=== PATIENT | male | born 1995 | race Caucasian/White ===

== ENCOUNTER 2016-09-10 16:25 | Emergency (ER) | payer OTHER ==
[2016-09-10 16:25] VITALS: TEMP 36.9; O2SAT 96
[2016-09-10 17:36] LABS: BLOOD UREA NITROGEN 10 mg/dl (7-18); BUN/CREATININE RATIO 10.6 (10-20); CALCIUM 8.5 mg/dl (8.5-10.1); CARBON DIOXIDE 24 mmol/L (21-32); CHLORIDE 107 mmol/L (98-107); CREATININE 0.96 mg/dl (0.60-1.40); GLUCOSE 94 mg/dl (70-99); POTASSIUM 3.7 mmol/L (3.5-5.1); SODIUM 142 mmol/L (136-145)
--- NOTE | 2016-09-10 19:22 | EMERGENCY ROOM VISIT NOTE ---
History Report prepared by Scribe: Paradise Lang Under the Supervision of: Dr. Arnulfo Gavin D.O. First contact with patient: 16:24 Chief Complaint: ALCOHOL OVERDOSE Stated Complaint: ETOH History of Present Illness The patient is a 21 year old male who presents to the Emergency Room with complaints of alcohol overdose occurring today. The patient was found hanging on a fence. HPI is limited secondary to alcohol overdose. Source of History: patient History Limited By: other (alcohol overdose) Onset: today Position: other (global) Quality: other (alcohol overdose) Review of Systems ROS is limited secondary to alcohol overdose. Past Medical & Surgical Medical Problems: (1) No Known Active Medical Problems Family History Patient reports no known family medical history. Social History Alcohol Use: occasionally Occupation Status: student Current/Historical Medications Unable to Obtain Active Prescriptions or Reported Meds Allergies Coded Allergies: Unobtainable (Unverified Allergy, Unknown, unknown, 09/10/16) Physical Exam Vital Signs Date Time Temp Pulse Resp B/P Pulse Ox O2 Delivery O2 Flow Rate FiO2 09/10/16 19:48 114 18 135/98 98 Room Air 09/10/16 18:55 70 19 117/64 98 Room Air 09/10/16 17:25 65 19 94 09/10/16 16:59 120/66 09/10/16 16:55 98 18 98 09/10/16 16:42 104 09/10/16 16:40 143/74 09/10/16 16:25 96 Room Air 09/10/16 16:25 36.9 126 14 134/76 96 Room Air 09/10/16 16:25 96 Room Air Physical Exam CONSTITUTIONAL/VITAL SIGNS: Reviewed / noted above. GENERAL: Non-toxic in appearance. INTEGUMENTARY: Warm, dry, and [place]. HEAD: Normocephalic. EYES: without scleral icterus or trauma. ENT/OROPHARYNX: clear and moist. LYMPHADENOPATHY/NECK: Is supple without lymphadenopathy or meningismus. RESPIRATORY: Lungs clear and equal. CARDIOVASCULAR: Regular rate and rhythm. GI/ABDOMEN: Soft and nontender. No organomegaly or pulsatile mass. No rebound or guarding. Normal bowel sounds. EXTREMITIES: Warm and well perfused. BACK: No CVA tenderness. NEUROLOGICAL: Intact without focal deficits. PSYCHIATRIC: normal affect. MUSCULOSKELETAL: Normally developed with good muscle tone. Medical Decision & Procedures ER Provider Diagnostic Interpretation: X ray results and stated below per my interpretation and radiology interpretation. LEFT WRIST MIN 3 VIEWS ROUTINE CLINICAL HISTORY: Left wrist pain COMPARISON: None. DISCUSSION: No fractures or dislocations are visualized. There are no erosive or destructive changes. IMPRESSION: No fractures identified. Electronically signed by: Tuan Babb M.D. 09/10/2016 8:17 PM Dictated Date/Time: 09/10/2016 8:16 PM Laboratory Results 09/10/16 16:49 Test 09/10/16 16:49 Anion Gap 11.0 mmol/L (3-11) Estimated GFR () 130.4 Estimated GFR (Non- 112.5 BUN/Creatinine Ratio 10.6 (10-20) Calcium Level 8.5 mg/dl (8.5-10.1) Ethyl Alcohol mg/dL 348.0 mg/dl (0-3) Laboratory results as stated above per my review. ED Course 1624: Previous medical records were reviewed. The patient was evaluated in room A04A. A complete history and physical examination was performed. 2158: On reevaluation, the patient is resting comfortably. I discussed the results and findings with the patient. He verbalized agreement of the treatment plan. He was discharged home. Medical Decision There is no evidence of other toxic ingestions, trauma, anemia, hypoglycemia, head injury or intracranial pathology, meningitis, encephalitis, acute intrathoracic or abdominal pathology or other metabolic condition. This is a 21-year-old male who presents to the ED with a chief complaint of alcohol intoxication. Patient was cooperative when he arrived. He denied any trauma. Denies has no medical history. PRP was normal. Alcohol reveals level 348. The patient remained in an aspiration precaution position during his ED stay. The patient remained on the monitor without ectopy. Pulse ox was never shown any evidence of hypoxia. Blood pressure never showed significant hypotension. The patient was observed during the evening and remained awake and alert. The patient was retrieved by a sober friend after numerous hours here in the ED. He was advised not to drink any more tonight. Patient was discharged home. Impression Primary Impression: Alcohol use with intoxication Scribe Attestation The scribe's documentation has been prepared under my direction and personally reviewed by me in its entirety. I confirm that the note above accurately reflects all work, treatment, procedures, and medical decision making performed by me. Departure Information Dispostion Home / Self-Care Prescriptions Unable to Obtain Active Prescriptions or Reported Meds Referrals No Doctor, Assigned (PCP) Forms HOME CARE DOCUMENTATION FORM, IMPORTANT VISIT INFORMATION Patient Instructions [facility]: [employer] Students and Alcohol Related Visits, [facility], [facility] Additional Instructions Avoid excessive consumption of alcohol. Avoid any more alcohol tonight.
--- NOTE | 2016-09-10 20:18 | DIAGNOSTIC IMAGING REPORT ---
LEFT WRIST MIN 3 VIEWS ROUTINE CLINICAL HISTORY: Left wrist pain COMPARISON: None. DISCUSSION: No fractures or dislocations are visualized. There are no erosive or destructive changes. IMPRESSION: No fractures identified. Electronically signed by: Tuan Babb M.D. 09/10/2016 8:17 PM Dictated Date/Time: 09/10/2016 8:16 PM
[2016-09-10 22:14] VITALS: BP 137/72; PULSE 89; O2SAT 98
== END 2016-09-10 22:14 | disposition home or self-care (01) ==
LOC: EDBD 16:25 → C.EDA 16:26
DX: F10.129 Alcohol abuse with intoxication, unspecified (principal)